=== PATIENT | female | born 1955 | race Caucasian/White ===

== ENCOUNTER 2016-08-17 10:00 | Day surgery (SDC) | payer OTHER ==
[~2016-08-17] VITALS: Ht 154.9 cm; Wt 51.3 kg
[~2016-08-17 10:00] MED LIST: 0.9% Sodium Chloride 1,000 ML IV SCH; CALC500C PO; CHOL10008 PO; DULO60CA42 PO; ESTR10TA VG; HYDR-3479 PO; LAMO200T2 PO; LORA0.5T PO; METO25TA99 PO; NAPR550T44 PO; OMEP40CA36 PO; PREG300C PO; SERT20OR6 PO; Sodium Chloride LOK Flush 10 mL Syringe IV PRN; TRIA0.1220 PO; fentaNYL-PF 50 mCg/mL 2 mL Inj IVPUSH PRN
[2016-08-17] MEDS ORDERED: FENO134C PO (10:29)
[2016-08-17] MEDS ORDERED: ASPI-973 PO (10:29)
[2016-08-17] MEDS ORDERED: ZONI100C6 PO (10:29)
[2016-08-17 10:31] VITALS: BP 123/69; PULSE 77; RESP 14; O2SAT 100
[2016-08-17 11:10] VITALS: BP 111/48; PULSE 74; RESP 16; O2SAT 100
[2016-08-17 11:20] VITALS: BP 117/62; PULSE 63; RESP 16; O2SAT 99
--- NOTE | 2016-08-17 11:45 | ENDO ---
[address] [address] ENDOSCOPY PROCEDURE PATIENT: ZACKERY JACKSON : 1955 MR#: [id number] ADMIT: 08/17/2016 JOB ID: [id number] DATE: 08/17/2016 PROCEDURE: Esophagogastroduodenoscopy. 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 The patient's ASA classification is 2. Mallampati score is 2. MEDICATIONS: 1. Versed 4 mg. 2. Fentanyl 75 mcg. INSTRUMENT USED: GIF H 180 J. PROCEDURE DETAILS: After informed consent was obtained, the patient was brought into the GI suite, where he was placed on oxygen via nasal cannula and monitored with continuous pulse oximeter, telemetry and blood pressure monitoring. A time-out was performed. Then, she was placed in a left lateral decubitus position and a bite block was placed. Medications were then administered for sedation. A standard esophagogastroduodenoscopy scope was inserted through the bite block and advanced under direct visualization to the second portion of the duodenum without difficulty. FINDINGS: 1. Normal appearing duodenal bulb, first and second portion. 2. Normal-appearing pylorus, antrum and gastric body. 3. Retroflexed views in the gastric body revealed a normal-appearing cardia and fundus. A hiatal hernia was appreciated. 4. The diaphragmatic hiatus was at approximately 40 cm. and the GE junction was at approximately 39 cm. There were several short tongues of salmon colored mucosa arising from the GE junction. This extended to approximately 38 cm. Multiple biopsies were obtained in the distal esophagus. 5. The remainder of the examined portions of the esophagus were otherwise unremarkable. 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 RECOMMENDATIONS: 1. Continue omeprazole daily. 2. Follow up in GI clinic. COMPLICATIONS: None. ESTIMATED BLOOD LOSS: Less than 5 mL. MTDD
--- NOTE | 2016-08-18 10:53 | PATH ---
SURGICAL PATHOLOGY Attending Physician:Shari Echeverria CASE STATUS: Signed Out PATIENT NAME: ZACKERY JACKSON PID: [id number] : 1955 DATE COLLECTED:08/17/2016 15:42 SPECIMEN: Esophagus, Biopsy CLINICAL HISTORY: DISTAL ESOPHAGUS BIOPSY FINAL DIAGNOSIS: 1.DISTAL ESOPHAGUS BIOPSY: SQUAMOUS MUCOSA AND GASTRIC CARDIA-TYPE MUCOSA POSITIVE FOR SPECIALIZED METAPLASIA OF ESCALERA' S-TYPE ESOPHAGUS. NEGATIVE FOR DYSPLASIA AND MALIGNANCY. EOSINOPHILS ARE NOT INCREASED. ICD10 CODE K22.70 GROSS DESCRIPTION: The specimen is received in one formalin filled container labeled with the patient's name, labeled "distal esophagus" and consists of 3 tiny portions of tissue which aggregate to 0.3 x 0.3 x 0.2 CM. The specimen is entirely submitted in one cassette. 08/17/2016 [facility] MICRO DESCRIPTION: See diagnosis. ICD-9 CODES: CPT CODES: 1: 43116 Electronically Signed Out Oskar Barron MD [facility] [address], [place] [address] Technical component performed at [facility], [facility] [address], [address]
== END 2016-08-17 23:59 | disposition home or self-care (01) ==
LOC: END 10:00
PROVIDERS: ATTEND Internal Medicine Gastroenterology
DX: K22.70 Barrett's esophagus without dysplasia (principal); K21.9 Gastro-esophageal reflux disease without esophagitis; K20.9 Esophagitis, unspecified; I25.2 Old myocardial infarction; Z86.73 Personal history of transient ischemic attack (TIA), and cerebral infarction without residual deficits; G50.1 Atypical facial pain; M85.80 Other specified disorders of bone density and structure, unspecified site; Z79.82 Long term (current) use of aspirin
CPT/HCPCS: 43239; G0500; J2250; J3010; J7030